=== PATIENT | male | born 1980 | race Caucasian/White ===

== ENCOUNTER 2017-05-08 18:26 | Emergency (ER) | payer BC ==
[~2017-05-08] VITALS: Ht 175.3 cm; Wt 77.8 kg
[2017-05-08 18:30] VITALS: TEMP 36.9; Ht 175.3 cm; Wt 77.8 kg
[2017-05-08] MEDS ORDERED: XYLOCAINE 1%/SOD BICARB 20 ML VIAL INFIL ONE (19:00)
[2017-05-08] MEDS ORDERED: DIPHTHERIA/TETANUS/PERTUSSIS 0.5 ML SYR/VIAL IM. ONE (19:00)
[2017-05-08] MEDS ORDERED: NAPR1TAB9 PO (19:02)
[2017-05-08] MEDS ORDERED: CETI1CAP3 PO (19:03)
[2017-05-08] MEDS ORDERED: CEPH500C PO (19:31)
[2017-05-08 19:44] VITALS: BP 114/63; PULSE 86; O2SAT 97
[2017-05-08] MEDS ORDERED: CEPHALEXIN 500MG HOME PACK 1 EA BTL PO ONE (19:45)
--- NOTE | 2017-05-08 20:03 | EMERGENCY ROOM VISIT NOTE ---
History First contact with patient: 18:35 Chief Complaint: LACERATION/CUT (SUT/DERMABOND) Stated Complaint: CUT LEFT HAND Nursing Triage Summary: Pt states he was gutting a deer and the knife slipped and he cut the side of his left hand. History of Present Illness The patient is a 36 year old male who presents to the Emergency Room with complaints of a laceration to his left hand. The injury happened around 11:15 AM this morning while gutting a deer. The patient denies any significant bleeding. Tetanus immunization is up-to-date. The patient is right-hand- dominant. He rates his discomfort a 5 out of 10. Review of Systems 10 system review was performed and was negative except for pertinent positives and negatives as indicated in history of present illness Past Medical/Surgical History Medical Problems: (1) Tobacco Use Disorder Surgical Problems: (1) History of wisdom tooth extraction Family History FH: heart disease Social History Smoking Status: Former Smoker Alcohol Use: occasionally Drug Use: none Marital Status: Occupation Status: employed Current/Historical Medications Scheduled Cephalexin Monohydrate (Keflex), 500 MG PO TID Cetirizine Hcl (All Day Allergy), 10 MG PO DAILY Naproxen (Aleve), 440 MG PO QAM Physical Exam Vital Signs Date Time Temp Pulse Resp B/P (MAP) Pulse Ox O2 Delivery O2 Flow Rate FiO2 05/08/17 19:44 86 18 114/63 97 05/08/17 18:30 36.9 109 16 137/82 97 Room Air Physical Exam CONSTITUTIONAL: Healthy and well nourished. Alert and oriented X 3 with positive affect. HEENT: Normocephalic, atraumatic. Pupils equal, round and reactive. MUSCULOSKELETAL: Examination shows a 1.5 cm laceration over the dorsolateral left fifth MCP region. The patient has full extension of the fifth finger against resistance. No active bleeding. Capillary refill is less than 2 seconds. INTEGUMENTARY: No rash or other significant dermatologic conditions noted. NEUROLOGIC: Left hand and fingers are sensory intact. Medical Decision & Procedures Medications Administered Medications (Trade) Dose Ordered Sig/Dl Route Start Time Stop Time Status Last Admin Dose Admin Diphtheria/ Pertussis/Tetanus Vacc (Adacel Inj) 0.5 ml ONCE ONCE IM. 05/08/17 19:00 05/08/17 19:01 DC 05/08/17 18:58 0.5 ML Cephalexin Monohydrate (Keflex 500MG Home Pack) 1 homepack NOW ONCE PO 05/08/17 19:45 05/08/17 19:46 DC 05/08/17 19:39 1 HOMEPACK Procedure Wound evaluation and repair was performed under local anesthesia after receiving verbal consent from the patient. Using buffered 1% lidocaine without epinephrine, good local anesthesia was administered. The peripheral tissue was enclosed with iodine, then copiously pressure irrigated with normal saline. Exploration of the wound does show a laceration of the ulnar-most extensor tendon, however this does not appear to cause any weakened extensor effort. The wound was then approximated using 5-0 nylon simple interrupted sutures. A metal splint and emilia taping was applied to the fourth and fifth fingers. ED Course Patient history and physical exam were performed. Nurse's notes were reviewed. Vital signs were reviewed and were normal. Exploration of the wound under local anesthesia shows evidence for an extensor tendon laceration which does not cause any decreased function of extensor effort. However, the patient was encouraged to follow-up with orthopedics for further reevaluation. The patient was provided a prescription and home pack for Keflex for prophylactic coverage. He was encouraged to take ibuprofen and Tylenol as needed for pain. The patient was provided contact information for [facility]. The patient was happy with plan of care, voiced understanding of all discharge instructions, and denied any pain at the time of discharge. Medical Decision Medication Reconcilliation Current Medication List: was personally reviewed by la Blood Pressure Screening Patient's blood pressure: Normal blood pressure Impression Primary Impression: Laceration of hand involving extensor tendon Departure Information Dispostion Home / Self-Care Prescriptions Cephalexin Monohydrate (Keflex) 500 Mg Cap 500 MG PO TID for 7 Days, #21 CAP Prov: Waqas Cross PA 05/08/17 Referrals Mikey Mccord MD Forms HOME CARE DOCUMENTATION FORM, IMPORTANT VISIT INFORMATION Patient Instructions My [facility] Additional Instructions Keep wound clean, dry and covered with an antibiotic ointment. Complete all Keflex antibiotics as prescribed. Wear metal splint and emilia taping to avoid stress on the tendon laceration until reevaluated by [facility] (Dr. Mccord). Call [facility] Wednesday morning for an appointment. Ice and elevate for swelling and pain. Ibuprofen 600 mg and/or Tylenol 1000 mg every 6 hrs as needed for pain. Problem Qualifiers Primary Impression: Laceration of hand involving extensor tendon Encounter type: initial encounter Laterality: left Qualified Codes: S61.412A - Laceration without foreign body of left hand, initial encounter
== END 2017-05-08 19:44 | disposition home or self-care (01) ==
LOC: C.EDB 18:27 → C.EDD 19:44
DX: S66.822A Laceration of other specified muscles, fascia and tendons at wrist and hand level, left hand, initial encounter (principal); W26.0XXA Contact with knife, initial encounter; Z87.891 Personal history of nicotine dependence

== ENCOUNTER → 2017-05-31 | Outpatient (CLI) | payer BC ==
[~2017-05-31] MED LIST: CETI1CAP3 PO; NAPR1TAB9 PO
[2017-05-31 14:42] LABS: BLOOD UREA NITROGEN 17 mg/dl (7-18); CALCIUM 8.7 mg/dl (8.5-10.1); CARBON DIOXIDE 29 mmol/L (21-32); CHLORIDE 106 mmol/L (98-107); CHOLESTEROL 240 mg/dl (0-200); CREATININE 1.15 mg/dl (0.60-1.40); GLUCOSE 108 mg/dl (70-99); SODIUM 140 mmol/L (136-145)
[2017-05-31 14:46] LABS: CHOLESTEROL/HDL RATIO 4.8; HDL CHOLESTEROL 50 mg/dl; LDL CHOLESTEROL CALCULATED 160 mg/dl; TRIGLYCERIDES 150 mg/dl (0-150); VERY LOW DENSITY LIPOPROT CALC 30 mg/dl
== END | disposition home or self-care (01) ==
LOC: C.LABPBG 08:31
PROVIDERS: ATTEND Physician Assistant
DX: Z00.00 Encounter for general adult medical examination without abnormal findings (principal)